=== PATIENT | male | born 1990 | race Caucasian/White ===

== ENCOUNTER 2018-04-08 13:27 | Emergency (ER) | payer OTHER ==
[2018-04-08 13:39] VITALS: RESP 18; TEMP 98.1
[2018-04-08] MEDS ORDERED: SODIUM CHLORIDE 0.9% 1,000 ML IV ONE (14:19)
[2018-04-08 14:58] LABS: Basophils % (A) 0 %; Eosinophils # (A) 0.3 k/uL (0-0.7); Eosinophils % (A) 2 %; HCT 47.7 % (39.0-53.0); HGB 16.2 gm/dL (13.0-17.5); Lymphocytes # (A) 1.5 k/uL (1.0-4.8); Lymphocytes % (A) 13 %; MCH 31.2 pg (25.0-35.0); MCHC 34.1 g/dL (31.0-37.0); MCV 91.6 fL (80.0-100.0); Monocytes # (A) 0.6 k/uL (0-1.0); Monocytes % (A) 5 %; Neutrophils # (A) 8.9 k/uL (1.3-7.7); Neutrophils % (A) 79 %; Platelet Count 405 k/uL (150-450); RDW 12.7 % (11.5-15.5); WBC 11.3 k/uL (3.8-10.6)
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
[2018-04-08 15:09] LABS: ALT 111 U/L (21-72); AST 61 U/L (17-59); Alkaline Phosphatase 75 U/L (38-126); Anion Gap 11 mmol/L; Blood Urea Nitrogen 20 mg/dL (9-20); Calcium 10.4 mg/dL (8.4-10.2); Carbon Dioxide 25 mmol/L (22-30); Chloride 106 mmol/L (98-107); Creatine Kinase 251 U/L (55-170); Glucose 96 mg/dL (74-99); Potassium 4.3 mmol/L (3.5-5.1); Sodium 142 mmol/L (137-145); Total Bilirubin 0.5 mg/dL (0.2-1.3); Total Protein 8.2 g/dL (6.3-8.2)
[2018-04-08 15:41] VITALS: BP 167/77; PULSE 89
--- NOTE | 2018-04-09 02:41 | CDI ---
Documentation Clarification OP Dear Alexia Pérez PA-C Please provide clinical impression. Thank you, Silvio Pitt [employer]er[employer] If you have any questions, please contact [employer]sheet [employer]ctor at [phone] [facility]
== END 2018-04-08 15:59 | disposition short-term general hospital (02) ==
LOC: EC 13:27
DX: T23.311A Burn of third degree of right thumb (nail), initial encounter (principal); R79.89 Other specified abnormal findings of blood chemistry; Z53.8 Procedure and treatment not carried out for other reasons; W86.8XXA Exposure to other electric current, initial encounter; Y93.89 Activity, other specified; Y92.219 Unspecified school as the place of occurrence of the external cause
CPT/HCPCS: 36415; 80053; 82550; 85025; 93005; 96360; 99285